=== PATIENT | male | born 2000 | race Caucasian/White ===

== ENCOUNTER 2021-04-11 14:01 | Emergency (ER) | payer SELFPAY ==
[~2021-04-11] VITALS: Ht 182.9 cm; Wt 63.0 kg
[2021-04-11 14:45] VITALS: BP 145/109
[2021-04-11] MEDS ORDERED: IBUPROFEN 800MG TABLET PO ONE (14:45)
[2021-04-11] MEDS ORDERED: IBUP-2030 MT (16:11)
== END 2021-04-11 16:39 | disposition home or self-care (01) ==
LOC: ER 14:04
DX: S83.8X1A Sprain of other specified parts of right knee, initial encounter (principal); S02.5XXA Fracture of tooth (traumatic), initial encounter for closed fracture; M79.604 Pain in right leg; R53.1 Weakness; V80.010A Animal-rider injured by fall from or being thrown from horse in noncollision accident, initial encounter; Y93.52 Activity, horseback riding; Y92.89 Other specified places as the place of occurrence of the external cause
CPT/HCPCS: 73552; 73562; 99284